=== PATIENT | male | born 1970 | race Caucasian/White ===

== ENCOUNTER 2016-08-24 14:57 | Emergency (ER) | payer OTHER ==
[2016-08-24 15:09] VITALS: O2SAT 94
[2016-08-24] MEDS ORDERED: ONDANSETRON 4 MG/2 ML VIAL IVP ONE (16:00)
[2016-08-24] MEDS ORDERED: NS 1,000 ML IV ONE (16:01)
[2016-08-24 16:24] LABS: % IMMATURE GRANULYOCYTES 0.5 % (0.0-1.1); ABSOLUTE IMMATURE GRANULOCYTES 0.05 10^3/uL (0.00-0.10); ADD DIFF? NO; ADD MORPH? NO; ADD SCAN? NO; ATYPICAL LYMPHOCYTE FLAG 0 (0-99); FRAGMENT RBC FLAG 0 (0-99); HEMATOCRIT 44.5 % (40.0-51.0); HEMOGLOBIN 15.9 g/dL (13.7-17.5); LEFT SHIFT FLG 0 (0-99); LIPEMIA HEMOLYSIS FLAG 90 (0-99); MEAN CELL HEMOGLOBIN CONCENTR. 35.7 g/dL (32.4-36.7); MEAN CELL VOLUME 95.3 fL (81.5-99.8); MEAN PLATELET VOLUME 11.5 fL (8.7-11.7); PLATELET CLUMPS FLAG 10 (0-99); PLATELET COUNT 175 10^3/uL (150-400); RED BLOOD CELL COUNT 4.67 10^6/uL (4.40-6.38); RED CELL DISTRIBUTION WIDTH 12.1 % (11.5-15.2)
--- NOTE | 2016-08-24 16:24 | EDPHY ---
H & P Stated Complaint: Possible food poisoning;n/v/d since last night HPI/ROS: CHIEF COMPLAINT: Food poisoning HISTORY OF PRESENT ILLNESS: Patient reports awaking at 1:00 a.m. with diarrhea , with vomiting that started 2 hours later. Multiple bouts of both over the next few hours. Associated with some cramping abdominal discomfort. Subjective fever and chills. Some diaphoresis. No chest pain. No back pain. No difficulty urinating. Symptoms have improved at this point he is no longer spontaneously having vomitus or diarrhea. However if he attempts to drink anything he reports diarrhea but no vomiting. He reports eating a meal outside the home at 6:00 p.m. last night. No other associated complaints or modifying factors. REVIEW OF SYSTEMS: Ten systems reviewed and are negative unless otherwise noted in the HPI PERTINENT MEDICAL HISTORY: Noncontributory EXAMINATION General Appearance: Alert, no distress Head: normocephalic, atraumatic Eyes: Pupils equal and round, no conjunctival pallor or injection ENT, Mouth: Mucous membranes moist. Uvula midline. No erythema or edema. Neck: Normal inspection, supple, non-tender Respiratory: Lungs are clear to auscultation. No wheezing rhonchi or crackles. Cardiovascular: Regular rate and rhythm. No murmur. Pulses intact distally. Gastrointestinal: Abdomen is soft and nontender. Equal bowel sounds in all quadrants. No tympany. No rigidity. Nonacute abdomen Back: non-tender, no bony abnormalities Neurological: A&O, nonfocal, strength symmetric Skin: Warm and dry, no rash. No petechiae or purpura Extremities: Nontender, no pedal edema Psychiatric: Mood and affect normal DIFFERENTIAL DIAGNOSES: Including but not limited to acute food-borne illness, dehydration, vomiting, diarrhea, viral illness MDM: 4:20 p.m. Diarrhea and vomiting 7 hours after eating a meal at a restaurant. Patient's history and examination do suggest the possibility of food borne illness. Vital signs are stable. Abdominal exam is benign. Laboratory studies are pending while we provide IV fluid resuscitation. 5:10 p.m. Laboratory studies reveal a mild leukocytosis and a very mild, isolated hyperbilirubinemia. The remainder of the liver function tests are within normal limits. He is feeling better at this time. He has not vomited and has had no diarrhea since time of arrival. Vital signs remained stable. He has received IV fluid resuscitation. We discussed discharge home with 2 forms of antiemetics. I do not recommend empiric antibiotic coverage given his scenario. He is comfortable with this plan. He is to follow up with primary care physician, for which he has an appointment on Friday. He is to return here for fever, return of vomiting or diarrhea, or inability to keep anything down for 12-24 hours. He is comfortable with this plan and discharged home stable condition. SUPERVISION: Patient was evaluated in conjunction with the supervising physician. Please see their note for details. Source: Patient - Personal History Current Tetanus Diphtheria and Acellular Pertussis (TDAP): Unsure - Medical/Surgical History Hx Asthma: No Hx Chronic Respiratory Disease: No Hx Diabetes: No Hx Cardiac Disease: No Hx Renal Disease: No Hx Cirrhosis: No Hx Alcoholism: No Other PMH: SPONDYLOSIS - Social History Smoking Status: Never smoked Constitutional: Initial Vital Signs Temperature (C) 98.2 F 08/24/16 15:05 Heart Rate 91 08/24/16 15:05 Respiratory Rate 18 08/24/16 15:05 Blood Pressure 90/61 L 08/24/16 15:05 O2 Sat (%) 94 08/24/16 15:05 O2 Delivery Mode Room Air Allergies/Adverse Reactions: codeine Allergy (Mild, Verified 08/24/16 15:06) itch Home Medications: Medication Instructions Recorded Ondansetron Odt [Zofran Odt 4 mg 4 mg PO Q6 PRN #12 tab 08/24/16 (*)] Promethazine HCl [Phenergan 25mg 25 mg PO Q8 PRN #12 tab 08/24/16 (*)] Medical Decision Making - Data Points Laboratory Results: Laboratory Results 08/24/16 16:06 08/24/16 16:06 08/24/16 08/24/16 16:06 16:06 WBC 11.05 10^3/uL H 10^3/uL (3.80-9.50) RBC 4.67 10^6/uL 10^6/uL (4.40-6.38) Hgb 15.9 g/dL g/dL (13.7-17.5) Hct 44.5 % % (40.0-51.0) MCV 95.3 fL fL (81.5-99.8) MCH 34.0 pg pg (27.9-34.1) MCHC 35.7 g/dL g/dL (32.4-36.7) RDW 12.1 % % (11.5-15.2) Plt Count 175 10^3/uL 10^3/uL (150-400) MPV 11.5 fL fL (8.7-11.7) Neut % (Auto) 90.6 % H % (39.3-74.2) Lymph % (Auto) 3.8 % L % (15.0-45.0) [place] % (Auto) 4.8 % % (4.5-13.0) Eos % (Auto) 0.0 % L % (0.6-7.6) Baso % (Auto) 0.3 % % (0.3-1.7) Nucleat RBC Rel Count 0.0 % % (0.0-0.2) Absolute Neuts (auto) 10.02 10^3/uL H 10^3/uL (1.70-6.50) Absolute Lymphs (auto) 0.42 10^3/uL L 10^3/uL (1.00-3.00) Absolute Monos (auto) 0.53 10^3/uL 10^3/uL (0.30-0.80) Absolute Eos (auto) 0.00 10^3/uL L 10^3/uL (0.03-0.40) Absolute Basos (auto) 0.03 10^3/uL 10^3/uL (0.02-0.10) Absolute Nucleated RBC 0.00 10^3/uL 10^3/uL (0-0.01) Immature Gran % 0.5 % % (0.0-1.1) Immature Gran # 0.05 10^3/uL 10^3/uL (0.00-0.10) Sodium 141 mEq/L mEq/L (134-144) Potassium 3.8 mEq/L mEq/L (3.5-5.2) Chloride 105 mEq/L mEq/L (97-110) Carbon Dioxide 25 mEq/l mEq/l (22-31) Anion Gap 11 mEq/L mEq/L (8-16) BUN 20 mg/dL mg/dL (7-23) Creatinine 0.9 mg/dL mg/dL (0.7-1.3) Estimated GFR > 60 Glucose 120 mg/dL H mg/dL (70-100) Calcium 9.2 mg/dL mg/dL (8.5-10.4) Total Bilirubin 1.5 mg/dL H mg/dL (0.1-1.4) Conjugated Bilirubin 0.4 mg/dL mg/dL (0.0-0.5) Unconjugated Bilirubin 1.1 mg/dL mg/dL (0.0-1.1) AST 29 IU/L IU/L (17-59) ALT 35 IU/L IU/L (21-72) Alkaline Phosphatase 71 IU/L IU/L (38-126) Total Protein 7.4 g/dL g/dL (6.3-8.2) Albumin 4.1 g/dL g/dL (3.5-5.0) Amylase 51 IU/L IU/L (30-110) Lipase 42.0 IU/L IU/L (23-300) Medications Given: Discontinued Medications Sodium Chloride (Ns) 1,000 mls @ 0 mls/hr IV ONCE ONE PRN Reason: Wide Open Stop: 08/24/16 16:02 Last Admin: 08/24/16 16:11 Dose: 1,000 mls Ondansetron HCl (Zofran) 4 mg IVP EDNOW ONE Stop: 08/24/16 16:01 Last Admin: 08/24/16 16:11 Dose: 4 mg Departure - Departure Disposition: Home, Routine, Self-Care Clinical Impression: Nausea vomiting and diarrhea Condition: Good Instructions: Gastroenteritis (ED) Additional Instructions: Increase fluid intake slowly. Zofran ODT p.r.n. as prescribed Phenergan p.o. p.r.n. as prescribed. Follow up primary care physician as scheduled on Friday. Return to the ER for worsening symptoms, fever Referrals: Esha Luis MD [Primary Care Provider] - As per Instructions Prescriptions: Ondansetron Odt [Zofran Odt 4 mg (*)] 4 mg PO Q6 PRN #12 tab PRN Reason: Nausea/Vomiting, Use 1st Promethazine HCl [Phenergan 25mg (*)] 25 mg PO Q8 PRN #12 tab PRN Reason: Nausea/Vomiting, Use 1st
[2016-08-24 16:42] LABS: ANION GAP 11 mEq/L (8-16); CARBON DIOXIDE 25 mEq/l (22-31); CHLORIDE 105 mEq/L (97-110); GLUCOSE 120 mg/dL (70-100); POTASSIUM 3.8 mEq/L (3.5-5.2); SODIUM 141 mEq/L (134-144)
[2016-08-24 16:43] LABS: ALANINE AMINOTRANSFERASE 35 IU/L (21-72); ALBUMIN 4.1 g/dL (3.5-5.0); ALKALINE PHOSPHATASE 71 IU/L (38-126); AMYLASE 51 IU/L (30-110); ASPARTATE AMINOTRANSFERASE 29 IU/L (17-59); BILIRUBIN,TOTAL 1.5 mg/dL (0.1-1.4); BILIRUBIN-CONJUGATED 0.4 mg/dL (0.0-0.5); BILIRUBIN-UNCONJUGATED 1.1 mg/dL (0.0-1.1); CALCIUM 9.2 mg/dL (8.5-10.4); CREATININE 0.9 mg/dL (0.7-1.3); GLOMERULAR FILTRATION RATE > 60; TOTAL PROTEIN 7.4 g/dL (6.3-8.2)
[2016-08-24 17:38] VITALS: BP 91/54; PULSE 78; RESP 16; TEMP 98.1
== END 2016-08-24 17:38 | disposition home or self-care (01) ==
DX: R19.7 Diarrhea, unspecified (principal); R11.2 Nausea with vomiting, unspecified
CPT/HCPCS: 96374; J2405

== ENCOUNTER → 2016-10-02 | Outpatient (CLI) | payer OTHER | LOC: BMCIMAGING 08:37 | PROVIDERS: ATTEND Family Medicine | DX: K82.4 Cholesterolosis of gallbladder (principal) ==

== ENCOUNTER → 2017-04-22 | Outpatient (CLI) | payer BC | LOC: BMCIMAGING 08:45 | PROVIDERS: ATTEND Internal Medicine Gastroenterology | DX: K82.4 Cholesterolosis of gallbladder (principal); N28.89 Other specified disorders of kidney and ureter ==